=== PATIENT | female | born 2000 | race African-American/Black ===

== ENCOUNTER 2018-12-31 09:24 | Emergency (ER) | payer OTHER, SELFPAY ==
[2018-12-31 09:45] VITALS: BP 97/63; PULSE 81; RESP 18; TEMP 36.7; O2SAT 100; BMI 21.4
[2018-12-31 10:25] LABS: Bacteria Urine Many (>30); Culture Indicated Urine Cult Not Indicated; RBC Urine 10-30/HPF (0-5/HPF); Squamous Epithelial Cell Urine 10-30 /HPF (0-5/HPF); WBC Urine 1-5/HPF (0-5/HPF)
--- NOTE | 2018-12-31 10:47 | ED_ITS ---
HPI - Female Genitourinary General Chief complaint: Urogenital-Female Stated complaint: unusual bleeding,vaginal Time Seen by Provider: 12/31/18 10:30 Source: patient Mode of arrival: ambulatory Limitations: no limitations History of Present Illness HPI Narrative: Patient is a 18-year-old female who presents with lower abdominal cramping and vaginal bleeding. She states she had an in September she has since been put on control. She says that she has had some irregular bleeding since then. However she had some light brown spotting her about 1 week morning she started having heavy bleeding. She is worried she might again. Her is negative. She is not having excessive her heavy bleeding not going through more than 1 pad or tampon an hour. She denies any painful or frequent urination. MD Complaint: vaginal bleeding Related Data Previous Rx's Medication Instructions Recorded phenazopyridine [Pyridium] 200 mg PO Q8HP PRN #6 tab 09/07/17 sulfamethoxazole-trimethoprim 1 tab PO BID #10 tab 09/07/17 Allergies Allergy/AdvReac Type Severity Reaction Status Date / Time No Known Drug Allergies Allergy Verified 12/31/18 10:50 Review of Systems Review of Systems GENERAL: Denies chills,fever HEENT: Denies throat pain RESPIRATORY: Denies dyspnea, cough, wheezing CARDIOVASCULAR: Denies chest pain, palpitations GASTROINTESTINAL: Denies nausea, vomiting : see HPI MUSCULOSKELETAL: Denies extremity pain, injury SKIN: No rash, no laceration, no pruritus NEUROLOGIC: Denies weakness, dizziness, headache, numbness 8 point review of systems is negative except for those stated above and HPI PFSH Social History Smoking Status: Current some day smoker Social History Smoking Status: Current some day smoker Exam Initial Vital Signs Initial Vital Signs: Vital Signs Temperature 98.0 F 12/31/18 09:45 Pulse Rate 81 12/31/18 09:45 Respiratory Rate 18 12/31/18 09:45 Blood Pressure 97/63 12/31/18 09:45 Pulse Oximetry 100 12/31/18 09:45 GENERAL: Young female appears well nontoxic HEENT: Head atraumatic,EOMI, pupils reactive, face symmetric, moist mucous membranes CARDIOVASCULAR: Regular rate and rhythm without murmurs, rubs or gallops. RESPIRATORY: Breath sounds equal bilaterally, no wheezes rales or rhonchi. ABDOMEN: Soft, very mild lower abdominal pain guarding no rebound no right lower quadrant pain EXTREMITIES: Normal range of motion, no clubbing or edema. Neurovascularly intact NEUROLOGICAL: Alert and oriented x4.Normal gait and speech. Cranial nerves II through XII grossly intact. SKIN: Warm, dry, no laceration, no petechiae, no rashes or lesions. Course Orders Ordered: ED Orders 12/31/18 09:55 Urine Microscopic Stat Discontinued Medications Ibuprofen (Advil) 800 mg PO NOW ONE Stop: 12/31/18 10:48 Last Admin: 12/31/18 10:54 Dose: Not Given Vital Signs - 8 hr 12/31/18 09:45 Temperature 98.0 F Pulse Rate 81 Respiratory Rate 18 Blood Pressure 97/63 Pulse Oximetry 100 MDM - Female Genitourinary Lab Data Attestation: I reviewed the patient's lab results. Lab Results 12/31/18 Range/Units 09:55 Urine RBC 10-30/hpf H (0-5/HPF) Urine WBC 1-5/hpf (0-5/HPF) Ur Squamous Epith Cells 10-30 /hpf H (0-5/HPF) Urine Bacteria Many (>30) H (None) Ur Culture Indicated? Cult not indicated Point of Care Testing Test Results Negative Urine Dip Bedside Urine Glucose Negative Bedside Urine Bilirubin - Negative Bedside Urine Ketone - Negative Urine Specific [place] 1.030 Bedside Urine Occult Blood +++ Bedside Urine pH 5.5 Bedside Urine Protein + 30 Bedside Urine Urobilinogen +/- 1mg Bedside Urine Nitrite - Negative Bedside Urine Leukocytes +/- 15 Esterase MDM Narrative Medical decision making narrative: At this time patient is not no sign or symptom of UTI. Dysfunctional uterine bleeding. At this time no excessive bleeding. Recommend that she follow up with cider press operator to help regulate. Discharge Plan Departure Patient Disposition: Home Clinical Impression: Vaginal bleeding Discharge Date/Time: 12/31/18 10:55 Interventions: ED Discharge Assessment Last Done: 12/31/18 10:54 Instructions: DI for Vaginal Bleeding Activity Restrictions/Additional Instructions: *You have been diagnosed with vaginal bleeding *What to do: At this time test is negative urinalysis is negative. I recommend he follow up with cider press operator to help regulate her cycle and possibly change or control *Continue to take medications as directed Motrin 600 mg every 6-8 hours if needed for pain *Follow up with your primary care provider in 2-3 days *Return to ER if you should have increased pain, bleeding more than 1 super pad or tampon an hour increased dizziness lightheadedness or any new, worsening or concerning symptoms Prescriptions: No Action phenazopyridine [Pyridium] 200 MG tablet 200 mg PO Q8HP PRNQty: 6 RF: 0 sulfamethoxazole-trimethoprim 800 MG/160 MG tablet 1 tab PO BID Qty: 10 RF: 0 Referrals: [employer] [facility] [Provider Group]
== END 2018-12-31 10:55 | disposition home or self-care (01) ==
PROVIDERS: Emergency Provider Emergency Medicine
DX: N93.9 Abnormal uterine and vaginal bleeding, unspecified (principal)
CPT/HCPCS: 81003; 81015; 81025; 99282

== ENCOUNTER 2019-01-12 08:41 | Emergency (ER) | payer OTHER, SELFPAY ==
--- NOTE | 2019-01-12 08:45 | ED.HA ---
HPI - Headache General Chief Complaint: Headache Stated Complaint: Migraine/hit head on dryer Time Seen by Provider: 01/12/19 08:45 Source: patient Mode of arrival: ambulatory History of Present Illness HPI Narrative: Patient is an otherwise healthy 18-year-old female here for evaluation of a head injury that she sustained while at work. 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 She had no loss of consciousness. She stated that she had a headache prior to hitting her head but after she hit her head the headache got worse. She also states she feels tired. She also states she did not sleep very well last night and this was all prior to hitting her head. She states that since she hit her head she has had some blurry vision. Has had migraines in the past and this feels like 1 of her prior headaches. She did not take anything for the symptoms prior to arrival. She was told to come to the emergency department by her job. Related Data Previous Rx's Medication Instructions Recorded phenazopyridine [Pyridium] 200 mg PO Q8HP PRN #6 tab 09/07/17 sulfamethoxazole-trimethoprim 1 tab PO BID #10 tab 09/07/17 Allergies Allergy/AdvReac Type Severity Reaction Status Date / Time No Known Drug Allergies Allergy Verified 12/31/18 10:50 Review of Systems Constitutional Reports fatigue, Denies fever(s), Denies frequent falls and Reports headache(s) Eyes Reports blurry vision and Denies loss of vision ENT Ears, Nose, Mouth, and Throat: Denies dizziness, Reports headache(s) and Denies neck pain Cardiovascular Denies chest pain and Denies dyspnea Respiratory Denies dyspnea Gastrointestinal Gastrointestinal: Denies abdominal pain, Denies nausea and Denies vomiting Musculoskeletal Denies myalgias, Denies arthralgias, Denies neck pain and Denies tingling Integumentary/Breasts Denies rash Neurologic Denies confusion, Denies dizziness, Denies frequent falls, Reports headache(s), Denies loss of vision, Denies tingling and Denies paresthesias Psychiatric Denies confusion Endocrine Reports fatigue Hematologic/Lymphatic Denies easy bleeding and Denies easy bruising [facility] Medical History Healthy adult (Acute) Social History Smoking Status: Current some day smoker Social History Smoking Status: Current some day smoker Exam Initial Vital Signs Initial Vital Signs: Vital Signs Temperature 98.5 F 01/12/19 08:47 Pulse Rate 69 01/12/19 08:47 Respiratory Rate 15 01/12/19 08:47 Blood Pressure 126/74 01/12/19 08:47 Pulse Oximetry 100 01/12/19 08:47 Const General: cooperative, healthy appearing, comfortable, well developed, well groomed and No acute distress Orientation: alert, awake and oriented x3 HENMT Head: normal to inspection and normocephalic Nose: external nose normal Face and sinus: normal facial exam Mouth: oral mucosae normal Eyes Pupils: PERRL EOM: EOM intact bilaterally Resp Effort & Inspection: normal respiratory effort Auscultation: clear to auscultation bilaterally Cardio Rate: regular rate Rhythm: regular rhythm Back/Spine/Pelvis Cervical Spine: No cervical spasm and No cervical spinal tenderness Skin Lesions: no lesions Rashes: no rashes Neuro General: alert, awake and oriented x3 Cranial Nerves: CN's II-XI intact bilaterally Cognition: normal cognition Speech: speech normal Motor: muscle tone normal throughout Sensory Exam: no sensory deficits noted Extrem General: normal to inspection and capillary refill normal Psych Appearance: grossly normal and well kempt Scores GCS [place]ger coma scale eye opening: Spontaneous [place] coma scale verbal response: Orientated [place] coma scale motor response: Obey commands Rod[place] coma scale total score: 15 Course Orders Ordered: Discontinued Medications Acetaminophen (Tylenol) 650 mg PO NOW ONE Stop: 01/12/19 08:54 Vital Signs - 8 hr 01/12/19 08:47 Temperature 98.5 F Pulse Rate 69 Respiratory Rate 15 Blood Pressure 126/74 Pulse Oximetry 100 MDM - Headache MDM Narrative Medical decision making narrative: Patient declined offer for IV medicines here in the emergency department. We did discuss the diagnosis of a concussion. I do not feel that she needs a head CT. She was given Tylenol. L and I paperwork completed. Patient was given the rest of today off and instructed to contact her primary provider for follow-up. She was given return precautions. She expressed understanding and agreement with plan. Discharge Plan Departure Patient Disposition: Home Clinical Impression: Headache Qualifiers: Headache type: unspecified Headache chronicity pattern: unspecified pattern Intractability: not intractable Qualified Code(s): R51 - Headache Concussion Qualifiers: Encounter type: initial encounter Loss of consciousness presence/duration: without LOC Qualified Code(s): S06.0X0A - Concussion without loss of consciousness, initial encounter Instructions: Concussion Activity Restrictions/Additional Instructions: You can take Tylenol and/or ibuprofen for any headaches. Contact your primary doctor for a follow-up. Return to the emergency department for any new or worsening symptoms. Prescriptions: No Action phenazopyridine [Pyridium] 200 MG tablet 200 mg PO Q8HP PRNQty: 6 RF: 0 sulfamethoxazole-trimethoprim 800 MG/160 MG tablet 1 tab PO BID Qty: 10 RF: 0 Stand Alone Forms: Work Release Note
[2019-01-12 08:47] VITALS: BP 126/74; PULSE 69; RESP 15; TEMP 36.9; O2SAT 100
[2019-01-12] MEDS: ACETAMINOPHEN 325 MG TABLET 650 MG PO (09:00)
== END 2019-01-12 09:17 | disposition home or self-care (01) ==
PROVIDERS: Emergency Provider Emergency Medicine
DX: R51 Headache (principal); S06.0X0A Concussion without loss of consciousness, initial encounter; W22.8XXA Striking against or struck by other objects, initial encounter; Y99.0 Civilian activity done for income or pay
CPT/HCPCS: 99282

== ENCOUNTER 2020-02-05 21:43 | Emergency (ER) | payer OTHER, MEDICAID, SELFPAY ==
[2020-02-05 21:46] VITALS: BP 115/59; PULSE 78; RESP 14; TEMP 36.9; O2SAT 99; BMI 20.2
--- NOTE | 2020-02-05 21:51 | DI.RAD.S_ITS ---
PROCEDURE: XR FOOT LT MIN 3V INDICATIONS: pain and swelling after fall TECHNIQUE: Three views of the foot were acquired. COMPARISON: None. FINDINGS: Bones: No fractures or dislocations. No suspicious bony lesions. Soft tissues: No tibiotalar joint effusion. Achilles tendon appears normal. IMPRESSION: 1. No definite fracture. If there is continued concern for fracture, immobilization and reimaging in 7-10 days is recommended. Dictated by: Kathe Patricia M.D. on 02/06/2020 at 6:41 Approved by: Kathe Patricia M.D. on 02/06/2020 at 6:46
--- NOTE | 2020-02-05 22:33 | ED.LOWEXIN ---
HPI - Extremity Injury (Lower) General Chief Complaint: Extremity Injury, Lower Stated Complaint: LEFT FOOT INJURY SWELLING Time Seen by Provider: 02/05/20 21:55 Source: patient Mode of arrival: Family Vehicle Limitations: no limitations History of Present Illness HPI Narrative: 19F smoker with noncontributory medical history presents with a chief complaint of foot pain after a skateboarding accident earlier in the week. She no has increasing pain with some swelling and then the 4th and 5th toes of her left foot. No crepitance, no ecchymosis. No other injury. Not dizzy not weak or lightheaded. Her pain is worse with ambulation and improves with rest Related Data Previous Rx's Medication Instructions Recorded phenazopyridine [Pyridium] 200 mg PO Q8HP PRN #6 tab 09/07/17 sulfamethoxazole-trimethoprim 1 tab PO BID #10 tab 09/07/17 Allergies Allergy/AdvReac Type Severity Reaction Status Date / Time No Known Drug Allergies Allergy Verified 12/31/18 10:50 Review of Systems Constitutional Constitutional: Denies chills, Denies fatigue, Denies fever(s), Denies frequent falls, Denies lethargy and Denies weakness Eyes Eyes: Denies change in vision, Denies eye discharge, Denies irritation and Denies loss of vision ENT Ears, Nose, Mouth, and Throat: Denies change in voice, Denies dizziness, Denies neck pain, Denies sore throat and Denies throat swelling Cardiovascular Cardiovascular: Denies chest pain, Denies irregular heart rhythm, Denies lightheadedness, Denies palpitations, Denies dyspnea, Denies dyspnea on exertion and Denies orthopnea Respiratory Respiratory: Denies cough, Denies dyspnea, Denies dyspnea on exertion and Denies wheezing Gastrointestinal Gastrointestinal: Denies abdominal pain, Denies change in bowel habits, Denies diarrhea, Denies nausea and Denies vomiting Musculoskeletal Musculoskeletal: Reports arthralgias, Denies neck pain and Denies numbness Integumentary/Breasts Skin/Breast: Denies pruritus, Denies erythema, Denies rash and Denies wounds Neurologic Neurologic: Denies behavioral changes, Denies confusion, Denies dizziness, Denies frequent falls, Denies loss of vision, Denies numbness and Denies weakness Psychiatric Psychiatric: Denies anxiety, Denies behavioral changes, Denies confusion, Denies depression, Denies homicidal ideation and Denies suicidal ideation Endocrine Endocrine: Denies fatigue, Denies flushing and Denies palpitations Hematologic/Lymphatic Hematologic/Lymphatic: Denies easy bruising Allergic/Immunologic Allergic/Immunologic: Denies urticaria, Denies throat swelling and Denies wheezing Patient History Medical History Healthy adult (Acute) Social History Smoking Status: Current some day smoker Smoking Status: Current some day smoker alcohol intake frequency: 0-2 drinks per day Substance Use Type: marijuana Exam Narrative Exam Narrative: GEN: AOx3 and in mild distress EYES: Pupils are equal, round, and reactive to light and accommodation. Extraoccular muscles are intact bilaterally. There is no subconjunctival hemorrhage or exudate. CHEST: Lungs are clear to auscultation bilaterally and free of wheezes, rales, or rhonchi. Heart rate is regular rhythm, there are no murmurs, clicks, rubs, or gallops. There is no chest wall tenderness. ABD: Abdomen is soft and nontender. There is no guarding or rebound. Bowel sounds are normal in all 4 quadrants. There is no mass or organomegaly. EXT: Full but painful range of motion of the left foot, particularly overlying the 4th and 5th toes at the MTP. No obvious deformity or significant swelling. SKIN: Warm, pink, and dry. No erythema or rash Initial Vital Signs Initial Vital Signs: Vital Signs Temperature 98.4 F 02/05/20 21:46 Pulse Rate 78 02/05/20 21:46 Respiratory Rate 14 02/05/20 21:46 Blood Pressure 115/59 L 02/05/20 21:46 Pulse Oximetry 99 02/05/20 21:46 Procedures Orthopedic Splinting/Casting Injury #1: Side: left Lower Extremity Injury Location: foot Lower Extremity Immobilizer: post-op shoe Post splinting neuro exam: intact Post splinting vascular exam: intact Placed by: Nursing Course Orders Ordered: ED Orders 02/05/20 21:51 XR foot LT min 3V Stat Vital Signs Vital signs: Vital Signs - 8 hr 02/05/20 22:52 02/05/20 22:56 Pulse Rate 80 Pulse Rate [Left Dorsalis Pedis] 68 Respiratory Rate 12 Blood Pressure 113/68 Pulse Oximetry 100 MDM - Extremity Injury (Lower) Imaging Data Extremity x-ray #1: Attestation: I personally reviewed and interpreted this imaging study as follows: My Impression: No bony abnormality Discharge Plan Departure Patient Disposition: Home Clinical Impression: Sprain of left foot Qualifiers: Encounter type: initial encounter Qualified Code(s): S93.602A - Unspecified sprain of left foot, initial encounter Contusion of foot, left Qualifiers: Encounter type: initial encounter Qualified Code(s): S90.32XA - Contusion of left foot, initial encounter Discharge Date/Time: 02/05/20 22:58 Instructions: DI for Foot Sprain Activity Restrictions/Additional Instructions: *You have been diagnosed with [left foot sprain with contusion] *What to do: *Take medications as directed *Follow up with your primary care provider in 2-3 days, call for an appointment. Let them know you were seen in the Emergency Department and that we ask that you be seen in follow up *Return to ER if you should have any new, worsening or concerning symptoms Radiographic study has been interpreted by an emergency physician. The official diagnosis by radiology will be performed within the next 24 hours and should there be any change in outcome we will notify you of how to proceed. Prescriptions: No Action phenazopyridine [Pyridium] 200 MG tablet 200 mg PO Q8HP PRNQty: 6 RF: 0 sulfamethoxazole-trimethoprim 800 MG/160 MG tablet 1 tab PO BID Qty: 10 RF: 0 Stand Alone Forms: Work Release Note
[2020-02-05 22:52] VITALS: PULSE 68
[2020-02-05 22:56] VITALS: BP 113/68; PULSE 80; RESP 12; O2SAT 100
== END 2020-02-05 22:58 | disposition home or self-care (01) ==
PROVIDERS: Emergency Provider Emergency Medicine
DX: S93.602A Unspecified sprain of left foot, initial encounter (principal); S90.32XA Contusion of left foot, initial encounter; V00.131A Fall from skateboard, initial encounter
CPT/HCPCS: 73630; 99281; 99283

== ENCOUNTER 2020-07-04 21:27 | Emergency (ER) | payer OTHER, MEDICAID, SELFPAY ==
[2020-07-04 21:32] VITALS: BP 123/60; PULSE 78; RESP 16; TEMP 36.4; O2SAT 97; BMI 20.5
[2020-07-04] MEDS: ONDANSETRON 4 MG ODT SL (21:39)
[2020-07-04 21:46] LABS: Bacteria Urine None Seen; WBC Urine None Seen (0-5/HPF)
[2020-07-04 21:48] LABS: Appearance Urine UA SL CLOUDY; Bilirubin Urine UA NEGATIVE (NEGATIVE); Color Urine UA YELLOW; Glucose Urine UA NEGATIVE (Negative); Ketones Urine UA 3+ (NEGATIVE); Leukocyte Esterase Urine UA NEGATIVE (NEGATIVE); Nitrite Urine UA NEGATIVE (Negative); Occult Blood Urine UA 1+ (Negative); Protein Urine UA 1+ (Negative); Specific Gravity Urine UA >=1.030 (1.000-1.035); Urobilinogen Urine UA 0.2 E.U./dL (0.2)
[2020-07-04 21:49] LABS: pH Urine UA 5.5 (4.5-8.0)
[2020-07-04 21:50] LABS: Pregnancy Test Urine Positive (Negative)
[2020-07-04 21:54] LABS: Culture Indicated Urine Cult Not Indicated; RBC Urine 1-5/HPF (0-5/HPF); Squamous Epithelial Cell Urine 1-5 /HPF (0-5/HPF)
--- NOTE | 2020-07-04 22:52 | PC.NURSE ---
Pt 7 weeks . No OB care thus far--awaiting appt in [place]. states nausea and unable to tolerate anything PO. given Zofran ODT at triage. roomed to 7 and states she is feeling much better and denies nausea at this time.
--- NOTE | 2020-07-04 23:37 | ED_ITS ---
HPI - Nausea/Vomiting/Diarrhea General Chief complaint: Nausea/Vomiting/Diarrhea Stated complaint: 7 WKS UNABLE TO KEEP THINGS DOWN Time Seen by Provider: 07/04/20 23:33 Source: patient Mode of arrival: Ambulatory Limitations: no limitations History of Present Illness HPI Narrative: Patient is a at approximately 7 weeks EGA here for evaluation of nausea and vomiting. She has had nausea for several days now but vomiting just over the past 24 hours. Does not have nausea medication at home. No urinary symptoms. No vaginal bleeding. No loss of fluid. Related Data Previous Rx's Medication Instructions Recorded phenazopyridine [Pyridium] 200 mg PO Q8HP PRN #6 tab 09/07/17 sulfamethoxazole-trimethoprim 1 tab PO BID #10 tab 09/07/17 ondansetron 4 mg PO Q6H PRN #14 tab 07/04/20 Allergies Allergy/AdvReac Type Severity Reaction Status Date / Time No Known Drug Allergies Allergy Verified 12/31/18 10:50 Review of Systems Constitutional Constitutional: Denies fever(s) Cardiovascular Cardiovascular: Denies chest pain Gastrointestinal Gastrointestinal: Denies abdominal pain, Reports nausea and Reports vomiting Genitourinary Genitourinary: Denies dysuria Genitourinary: Denies dysuria and Denies vaginal discharge Integumentary/Breasts Skin/Breast: Denies rash Neurologic Neurologic: Denies behavioral changes Psychiatric Psychiatric: Denies behavioral changes Hematologic/Lymphatic Hematologic/Lymphatic: Denies easy bleeding and Denies easy bruising Patient History Medical History Healthy adult Social History Smoking Status: Former smoker Smoking Status: Former smoker alcohol intake frequency: holidays/special occasions only Substance Use Type: does not use Exam Initial Vital Signs Initial Vital Signs: Vital Signs Temperature 97.6 F 07/04/20 21:32 Pulse Rate 78 07/04/20 21:32 Respiratory Rate 16 07/04/20 21:32 Blood Pressure 123/60 07/04/20 21:32 Pulse Oximetry 97 07/04/20 21:32 Const General: cooperative and comfortable Resp Effort & Inspection: normal respiratory effort Cardio Rate: regular rate GI Inspection: non-distended Skin Lesions: no lesions Rashes: no rashes Neuro General: patient alert and patient awake Extrem General: normal to inspection Course Orders Ordered: Discontinued Medications Ondansetron HCl (Ondansetron 4 Mg Odt) 4 mg SL NOW ONE Stop: 07/04/20 21:38 Last Admin: 07/04/20 21:39 Dose: 4 mg Documented by: JOYA Ondansetron HCl (Ondansetron 4 Mg Odt Prepack) 1 bottle MISC SEEINSTR ONE Stop: 07/04/20 23:38 Vital Signs Vital signs: Vital Signs - 8 hr 07/04/20 23:49 Pulse Rate 74 Respiratory Rate 16 Blood Pressure 112/68 Pulse Oximetry 97 MDM - Nausea/Vomiting/Diarrhea Lab Data Attestation: I reviewed the patient's lab results. Labs: Lab Results 07/04/20 07/04/20 Range/Units 21:39 21:39 Urine Color Yellow Urine Appearance Sl cloudy Urine pH 5.5 (4.5-8.0) Ur Specific [place] >=1.030 H (1.000-1.035) Urine Protein 1+ H (Negative) Urine Glucose (UA) Negative (Negative) g/dL Urine Ketones 3+ H (NEGATIVE) Urine Occult Blood 1+ H (Negative) Urine Nitrate Negative (Negative) Urine Bilirubin Negative (NEGATIVE) Urine Urobilinogen 0.2 (0.2) E.U./dL Ur Leukocyte Esterase Negative (NEGATIVE) Urine RBC 1-5/hpf D (0-5/HPF) Urine WBC None seen (0-5/HPF) Ur Squamous Epith Cells 1-5 /hpf D (0-5/HPF) Urine Bacteria None seen (None) Ur Culture Indicated? Cult not indicated Urine Test Positive H (Negative) MDM Narrative Medical decision making narrative: Patient states she feels better after the Zofran. She is able to tolerate oral intake. She has not have any vaginal bleeding or vaginal discharge. No fevers. Your not consistent with urinary tract infection. Suspect that the nausea vomiting is related to the . Will send home with nausea medication. She is given return precautions and follow-up instructions. She expressed understanding and agreement. Discharge Plan Departure Patient Disposition: Home Clinical Impression: Vomiting affecting Instructions: Nausea and Vomiting-Adult Activity Restrictions/Additional Instructions: Recommend that you drink small amounts of fluid over long periods of time. Use the nausea medicine as directed. Keep all of your scheduled medical appointments. Return to the emergency department for any new or worsening symptoms Prescriptions: New ondansetron 4 mg tablet,disintegrating 4 mg PO Q6H PRN (Reason: nausea and vomiting) Qty: 14 RF: 0 No Action phenazopyridine [Pyridium] 200 MG tablet 200 mg PO Q8HP PRNQty: 6 RF: 0 sulfamethoxazole-trimethoprim 800 MG/160 MG tablet 1 tab PO BID Qty: 10 RF: 0 Stand Alone Forms: Work Release Note
[2020-07-04 23:49] VITALS: BP 112/68; PULSE 74; RESP 16; O2SAT 97
== END 2020-07-04 23:50 | disposition home or self-care (01) ==
PROVIDERS: Emergency Provider Emergency Medicine
DX: O21.9 Vomiting of pregnancy, unspecified (principal); Z3A.01 Less than 8 weeks gestation of pregnancy
CPT/HCPCS: 81001; 81025; 99281; 99282